=== PATIENT | male | born 1930 | race Caucasian/White ===

== ENCOUNTER 2017-01-31 00:59 | Inpatient (IN) | payer MEDICARE, BC ==
[~2017-01-31] VITALS: Ht 157.5 cm; Wt 73.0 kg
[~2017-01-31 00:59] MED LIST: AMLO5TAB2 PO; ASPI81TA2 PO; CLOP75TA2 PO; DIME25TA2 PO; EZET10TA PO; MEMA10TA PO; METO25TA6 PO; SITA1TAB2 PO
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
[2017-01-31] MEDS ORDERED: MORPHINE SULFATE INJ 2 MG/ML DISP.SYRIN ONE (01:15)
[2017-01-31] MEDS ORDERED: MORPHINE SULFATE INJ 4 MG/ML DISP.SYRIN ONE (01:15)
[2017-01-31] MEDS ORDERED: ONDANSETRON HCL/PF 4 MG/2 ML VIAL ONE (01:15)
[2017-01-31] MEDS ORDERED: ONDANSETRON HCL/PF 4 MG/2 ML VIAL IVP ONE (01:30)
[2017-01-31] MEDS ORDERED: MORPHINE SULFATE INJ 2 MG/ML DISP.SYRIN IV ONE (01:30)
[2017-01-31 01:50] LABS: CALCIUM, SERUM 9.7 mg/dL (8.5-10.1); CARBON DIOXIDE 29 mmol/L (21-32); CHLORIDE 91 mmol/L (98-107); CREATININE 0.9 mg/dL (0.6-1.3); GLUCOSE 182 mg/dL (74-106); POTASSIUM 4.4 mmol/L (3.5-5.1); SODIUM SERUM 131 mmol/L (136-145); UREA NITROGEN, BLOOD 17 mg/dL (7-18)
[2017-01-31 01:53] LABS: BASOPHILS % (AUTO) 0.2 % (0.0-2.0); EOSINOPHILS # (AUTO) 0.2 /CMM (0.0-0.7); EOSINOPHILS % (AUTO) 1.3 % (0.0-6.0); HEMATOCRIT 46 % (39-51); HEMOGLOBIN 15.4 g/dL (13.5-17.5); LYMPHOCYTES # (AUTO) 0.8 /CMM (0.8-4.8); LYMPHOCYTES % (AUTO) 6.1 % (20.0-44.0); MEAN CORPUSCULAR HEMOGLOBIN 30 PG (26.0-33.0); MEAN CORPUSCULAR HGB CONC 33 g/dl (31.0-36.0); MEAN CORPUSCULAR VOLUME 90 fL (80-96); MONOCYTES # (AUTO) 0.8 /CMM (0.1-1.30); MONOCYTES % (AUTO) 5.8 % (2.0-12.0); NEUTROPHILS # (AUTO) 11.6 /CMM (1.8-8.9); NEUTROPHILS % (AUTO) 86.6 % (43.0-81.0); PLATELET COUNT (AUTO) 289 /CMM (150-450); RDW COEFFICIENT OF VARIATION 14.4 (11.5-15.0); RED BLOOD CELL COUNT(AUTO) 5.16 MIL/uL (4.5-6.0); WHITE BLOOD COUNT (AUTO) 13.4 K/uL (4.3-11.0)
[2017-01-31 01:57] LABS: ALANINE AMINOTRANSFERASE 22 U/L (12-78); ALBUMIN 4.9 g/dL (3.4-5.0); ALKALINE PHOSPHATASE 64 U/L (46-116); ASPARTATE AMINOTRANSFERASE 19 U/L (15-37); BILIRUBIN,DIRECT 0.1 mg/dL (0.0-0.2); BILIRUBIN,TOTAL 0.5 mg/dL (0.2-1.0); TOTAL PROTEIN, SERUM 8.6 g/dL (6.4-8.2)
[2017-01-31 01:58] LABS: TROPONIN I 0.021 ng/mL (0.00-0.056)
[2017-01-31 02:27] LABS: INR 0.95 (0.87-1.13); PROTHROMBIN TIME 10.1 SECS (9.5-12.7)
--- NOTE | 2017-01-31 03:33 | NUR ---
LAB IN ROOM TO DRAW
--- NOTE | 2017-01-31 03:34 | NUR ---
PT IN BED IN NO APPARENT DISTRESS, PT ON MONITOR, VSS WILL CONTINUE TO MONITOR.
[2017-01-31] MEDS ORDERED: ASPIRIN 81 MG TAB.CHEW ONE (04:25)
[2017-01-31] MEDS ORDERED: ASPIRIN 325 MG TABLET PO ONE (04:30)
--- NOTE | 2017-01-31 05:41 | NUR ---
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
[2017-01-31] MEDS ORDERED: LISI10TA5 PO (06:24)
[2017-01-31] MEDS ORDERED: METF10002 PO (06:24)
[2017-01-31] MEDS ORDERED: SITA100T PO (06:24)
[2017-01-31] MEDS ORDERED: CHOL200026 PO (06:27)
[2017-01-31] MEDS ORDERED: FENO135C PO (06:27)
--- NOTE | 2017-01-31 06:30 | NUR ---
RN NOTES RECEIVED PATIENT FROM ER. AO X 3, ABLE TO MAKE NEEDS KNOWN. NO ACUTE DISTRESS NOTED. DENIES ANY PAIN AT THIS TIME. TELE READING SR WITH BBB AND PVC, HR 78. ON LOW BED WITH BILATERAL UPPER SIDE RAILS UP. CALL LIGHT WITHIN EASY REACH. RFA GAUGE 18 IV SITE PATENT, INTACT; FLUSHED. WAITING FOR ADMISSION ORDERS. WILL GIVE REPORT TO DAY SHIFT FOR CONTINUITY OF CARE.
[2017-01-31] MEDS ORDERED: IV NS 0.9% 1,000 ML IV PRN (06:41)
[2017-01-31] MEDS ORDERED: MAG HYDROX/AL HYDROX/SIMETH 30 ML UDC PO PRN (07:00)
[2017-01-31] MEDS ORDERED: ZOLPIDEM TARTRATE 5 MG TABLET PO PRN (07:00)
[2017-01-31] MEDS ORDERED: HYDROCODONE/APAP 5/325MG 1 EACH TABLET PO PRN (07:00)
[2017-01-31] MEDS ORDERED: ONDANSETRON HCL/PF 4 MG/2 ML VIAL IVP PRN (07:00)
[2017-01-31] MEDS ORDERED: Z GUARD REMEDY 2 OZ OINT TP PRN (07:00)
[2017-01-31] MEDS ORDERED: MAGNESIUM HYDROXIDE 30 ML UDC PO PRN (07:00)
[2017-01-31] MEDS ORDERED: ACETAMINOPHEN 325 MG TABLET PO PRN (07:00)
[2017-01-31 07:30] VITALS: BP 136/71
[2017-01-31] MEDS ORDERED: PANTOPRAZOLE 40 MG TABLET.DR PO SCH (07:30)
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
--- NOTE | 2017-01-31 08:30 | NUR ---
tele lnv: notes dr. sheth (caridologist, salon leader for dr. prasad) here and made aware of admission for chest pain.
[2017-01-31] MEDS ORDERED: ENOXAPARIN SODIUM 40 MG/0.4 ML DISP.SYRIN SQ SCH (09:00)
[2017-01-31] MEDS ORDERED: IV SET PRIMARY PUMP SET 1 EA INFUS.SET MC ONE (09:15)
--- NOTE | 2017-01-31 10:30 | NUR ---
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 delgado's acnp student at this time. informed acnp re: home meds needs to be reconciled. pt remains sr with bbb=[id number]. instructed to call for assistance. will continue to monitor.
[2017-01-31 12:00] VITALS: BP 142/65
--- NOTE | 2017-01-31 12:00 | NUR ---
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 delgado, awaiting order. pt aware.
[2017-01-31] MEDS ORDERED: DIMENHYDRINATE 25 MG PO SCH (14:30)
[2017-01-31] MEDS ORDERED: FENOFIBRIC ACID 45 MG PO SCH (14:30)
[2017-01-31] MEDS ORDERED: Medication Not On Formulary EA (Sitagliptin Phosphate (Januvia) 100 MG) PO SCH (14:30)
[2017-01-31] MEDS ORDERED: ASPIRIN 81 MG TAB.CHEW PO SCH (14:30)
[2017-01-31] MEDS ORDERED: AMLODIPINE BESYLATE 5 MG TABLET PO SCH (14:30)
[2017-01-31] MEDS ORDERED: Medication Not On Formulary EA (Metformin Hcl 1,000 MG) PO SCH (14:30)
[2017-01-31] MEDS ORDERED: EZETIMIBE 10 MG TABLET PO SCH (14:30)
[2017-01-31] MEDS ORDERED: CLOPIDOGREL BISULFATE 75 MG TABLET PO SCH (14:30)
[2017-01-31] MEDS ORDERED: Medication Not On Formulary EA (Memantine Hcl (Namenda) 1 TAB) PO SCH (14:30)
[2017-01-31] MEDS ORDERED: METOPROLOL TARTRATE 25 MG TABLET PO SCH (14:30)
[2017-01-31] MEDS ORDERED: LISINOPRIL (10MG) 10 MG TABLET PO SCH (14:30)
--- NOTE | 2017-01-31 14:30 | NUR ---
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 order acknowledged. pt aware and caregiver to pick him up.
--- NOTE | 2017-01-31 14:40 | NUR ---
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 iv removed with tip intact with no bleeding, no redness, and no swelling noted. still awaiting for his caregiver to pick him up. tele removed. will monitor.
--- NOTE | 2017-01-31 15:00 | NUR ---
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 pt getting ready for discharge.
--- NOTE | 2017-01-31 15:20 | NUR ---
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
== END 2017-01-31 15:20 | disposition home or self-care (01) | DRG 206 ==
LOC: ER 00:59 → TELE 04:34
PROVIDERS: ADMIT Internal Medicine; ATTEND Internal Medicine
DX: M94.0 Chondrocostal junction syndrome [Tietze] (principal); I10 Essential (primary) hypertension; K21.9 Gastro-esophageal reflux disease without esophagitis; E11.9 Type 2 diabetes mellitus without complications; Z95.2 Presence of prosthetic heart valve; V49.9XXA Car occupant (driver) (passenger) injured in unspecified traffic accident, initial encounter; Y93.9 Activity, unspecified; Y92.89 Other specified places as the place of occurrence of the external cause; E78.5 Hyperlipidemia, unspecified; I25.10 Atherosclerotic heart disease of native coronary artery without angina pectoris
CPT/HCPCS: 36415; 71010-TC; 71250-TC; 72192-TC; 74150-TC; 80048-TC; 80076-TC; 84484-TC; 85025-TC; 85730-TC; 86850-TC; 93307-TC; A4606; J1650; J2270; J2405; J7030; Z7610